=== PATIENT | male | born 1970 | race Two or more races ===

== ENCOUNTER → 2022-02-05 | Outpatient (CLI) | payer MEDICAID ==
[~2022-02-05] MED LIST: ALBUTEROL SULF 2.5 MG/0.5ML(0.5%) NEB SOLN ONE
== END | disposition home or self-care (01) ==
LOC: LAB 09:04
PROVIDERS: ATTEND Internal Medicine Pulmonary Disease
DX: Z01.812 Encounter for preprocedural laboratory examination (principal); Z20.822 Contact with and (suspected) exposure to COVID-19
CPT/HCPCS: 36415; 87426

== ENCOUNTER → 2022-05-13 | Outpatient (CLI) | payer MEDICAID ==
[~2022-05-13] VITALS: Ht 180.3 cm; Wt 158.8 kg
[~2022-05-13] MED LIST changes: +ADENOSINE 133 MG in GIVE UN-DILUTED 0 ML IV STA; -ALBUTEROL SULF 2.5 MG/0.5ML(0.5%) NEB SOLN ONE
== END | disposition home or self-care (01) ==
LOC: XY 07:55
PROVIDERS: ATTEND Internal Medicine
DX: I87.2 Venous insufficiency (chronic) (peripheral) (principal); R63.8 Other symptoms and signs concerning food and fluid intake; I26.99 Other pulmonary embolism without acute cor pulmonale; F17.210 Nicotine dependence, cigarettes, uncomplicated; I83.893 Varicose veins of bilateral lower extremities with other complications; E78.5 Hyperlipidemia, unspecified; E11.9 Type 2 diabetes mellitus without complications; I10 Essential (primary) hypertension; Z68.43 Body mass index [BMI] 50.0-59.9, adult; Z91.19 Patient's noncompliance with other medical treatment and regimen; Z79.4 Long term (current) use of insulin
CPT/HCPCS: 78452; 93017; A9500; J0153

== ENCOUNTER → 2022-05-25 | Outpatient (CLI) | payer MEDICAID | END | disposition home or self-care (01) | LOC: XYW 09:23 | PROVIDERS: ATTEND Internal Medicine | DX: I10 Essential (primary) hypertension (principal); I50.20 Unspecified systolic (congestive) heart failure | CPT/HCPCS: 93306 ==

== ENCOUNTER → 2023-04-20 | Outpatient (CLI) | payer MEDICAID ==
[2023-04-20] VITALS (7 sets, daily range): BP systolic 115–155; BP diastolic 54–68
[~2023-04-20] MED LIST changes: -ADENOSINE 133 MG in GIVE UN-DILUTED 0 ML IV STA; +DOBUTamine 1000MCG/ML 250 ML IV ONE
== END | disposition home or self-care (01) ==
LOC: Rad HDHVI 08:22
PROVIDERS: ATTEND Internal Medicine Cardiovascular Disease
DX: I11.0 Hypertensive heart disease with heart failure (principal); I50.20 Unspecified systolic (congestive) heart failure; I25.10 Atherosclerotic heart disease of native coronary artery without angina pectoris; J96.11 Chronic respiratory failure with hypoxia
CPT/HCPCS: 93005; 93306; 96374; G0463; J1250; 96365

== ENCOUNTER → 2024-01-14 | Outpatient (CLI) | payer MEDICAID | END | disposition home or self-care (01) | LOC: Rad HDHVI 14:52 | PROVIDERS: ATTEND Internal Medicine Cardiovascular Disease | DX: I34.81 Nonrheumatic mitral (valve) annulus calcification (principal); I51.7 Cardiomegaly; E78.5 Hyperlipidemia, unspecified; R42 Dizziness and giddiness | CPT/HCPCS: 93306 ==